=== PATIENT | female | born 1995 | race Two or more races ===

== ENCOUNTER 2022-05-05 10:39 | Outpatient (CLI) | payer BC | END 2022-05-05 10:40 | disposition home or self-care (01) | LOC: CSHULT 10:39 | PROVIDERS: ATTEND Nurse Practitioner Family | DX: E06.0 Acute thyroiditis (principal) | CPT/HCPCS: 76536 ==

== ENCOUNTER 2022-06-16 09:36 | Emergency (ER) | payer BC ==
[2022-06-16] MEDS ORDERED: Metoclopramide HCl 10 MG/2 ML VIAL ONE (10:24)
[2022-06-16] MEDS ORDERED: diphenhydrAMINE 50 MG/ML VIAL ONE (10:25)
[2022-06-16 10:31] LABS: #Monocytes 0.8 10x3/uL (0.0-1.1); #Neutrophils 6.2 10x3/uL (1.5-8.4); %Basophils 0.2 % (0.0-2.0); %Eosinophils 0.4 % (0.0-6.0); %Monocytes 9.7 % (0.0-10.0); %Neutrophils 73.5 % (40.0-75.0); Hemoglobin 12.4 g/dL (12.0-15.5); Mean Corpuscular HGB CONC 35.1 g/dL (32.0-36.0); Mean Corpuscular Hemoglobin 30.5 pg (27.0-33.0); Mean Corpuscular Volume 86.9 fl (81.6-98.3); Mean Platelet Volume 9.6 fl (7.4-10.4); Platelet Count 318 10x3/uL (150-450); RBC Distribution Width 12.3 % (11.5-14.5); Red Blood Cell (RBC) Count 4.06 10x6/uL (3.90-5.03); White Blood Cell (WBC) Count 8.4 10x3/uL (3.5-10.5)
[2022-06-16 12:20] LABS: Anion Gap 14 mmol/L (10-20); BUN (Urea Nitrogen) 10 mg/dL (7.0-18.7); Calc. Creatinine Clearance 0 mL/min (70-130); Calcium 9.5 mg/dL (7.8-10.44); Carbon Dioxide 21 mmol/L (22-29); Chloride 106 mmol/L (98-107); Estimated GFR 127; Glucose 64 mg/dL (70-105); Potassium 3.1 mmol/L (3.5-5.1); Sodium 138 mmol/L (136-145)
[2022-06-16] MEDS ORDERED: Potassium Chloride 20 MEQ TAB ONE (12:50)
== END 2022-06-16 12:57 | disposition home or self-care (01) ==
LOC: CSHERS 09:36
DX: O21.0 Mild hyperemesis gravidarum (principal); O99.810 Abnormal glucose complicating pregnancy; E16.2 Hypoglycemia, unspecified; O99.281 Endocrine, nutritional and metabolic diseases complicating pregnancy, first trimester; E87.6 Hypokalemia; Z3A.12 12 weeks gestation of pregnancy
CPT/HCPCS: 80048; 85025; 96365; 96375; J1200; J2765

== ENCOUNTER 2022-08-14 08:47 | Day surgery (SDC) | payer BC ==
[2022-08-14 09:36] VITALS: BMI 19.3
[2022-08-14] MEDS ORDERED: hydrALAZINE 20 MG/ML VIAL SLOW IVP PRN (11:50)
[2022-08-14 12:26] LABS: Bilirubin Neg (Negative); Blood, Urine Negative (Negative); Clarity Clear (Clear); Glucose, Urine (Dipstick) Normal (Negative); Ketone, Urine 50 mg/dL (Negative); Leukocyte Negative (Negative); Nitrite Negative (Negative); Protein, Urine (Dipstick) Negative (Neg-Trace); Urobilinogen Normal mg/dL (Less than 2)
[2022-08-14] MEDS ORDERED: Acetaminophen 500 MG TAB PO SCH (13:00)
== END 2022-08-14 14:32 | disposition home or self-care (01) ==
LOC: CSHLD/OP 08:47
PROVIDERS: ATTEND Student in an Organized Health Care Education/Training Program
DX: O26.892 Other specified pregnancy related conditions, second trimester (principal); M54.9 Dorsalgia, unspecified; Z3A.19 19 weeks gestation of pregnancy
CPT/HCPCS: 76815; 81003; 87480; 87510; 87660; 99285

== ENCOUNTER 2022-11-09 12:33 | Inpatient (IN) | payer BC ==
[2022-11-09 13:44] VITALS: BMI 23.8
[2022-11-09] MEDS ORDERED: Promethazine HCl 25 MG/ML VIAL IM PRN (14:04)
[2022-11-09] MEDS ORDERED: Butorphanol Tartrate 1 MG/ML VIAL SLOW IVP PRN (14:04)
[2022-11-09] MEDS ORDERED: Calcium Gluc 4.6 MEQ/10 ML (100 MG/ML) SLOW IVP PRN (14:04)
[2022-11-09] MEDS ORDERED: Lorazepam 2 MG/ML VIAL SLOW IVP PRN (14:04)
[2022-11-09] MEDS ORDERED: Ondansetron PF 4 MG/2 ML Vial IVP PRN (14:04)
[2022-11-09] MEDS ORDERED: hydrALAZINE 20 MG/ML VIAL SLOW IVP PRN (14:04)
[2022-11-09] MEDS ORDERED: Docusate 100 MG CAP PO PRN (14:04)
[2022-11-09] MEDS ORDERED: Zolpidem Tartrate 5 MG TAB PO PRN (14:04)
[2022-11-09] MEDS ORDERED: Magnesium Sulfate 20 gm/500 ml 20 GM/500 ML BAG ONE (14:20)
[2022-11-09] MEDS ORDERED: Betamet Acet/Betamet Na Ph 30 MG/5 ML VIAL ONE (14:21)
[2022-11-09] MEDS: Betamet Acet/Betamet Na Ph 30 MG/5 ML VIAL IM SCH (14:33)
[2022-11-09 15:12] LABS: Hemoglobin 12.6 g/dL (12.0-15.5); Mean Corpuscular HGB CONC 35.9 g/dL (32.0-36.0); Mean Corpuscular Hemoglobin 32.9 pg (27.0-33.0); Mean Corpuscular Volume 91.6 fl (81.6-98.3); Mean Platelet Volume 10.9 fl (7.4-10.4); Platelet Count 244 10x3/uL (150-450); RBC Distribution Width 14.3 % (11.5-14.5); Red Blood Cell (RBC) Count 3.83 10x6/uL (3.90-5.03); White Blood Cell (WBC) Count 7.5 10x3/uL (3.5-10.5)
[2022-11-09 15:45] LABS: HBSAg Index 0.17 S/CO (0-0.99); Hep B Surf Ag Non-Reactive S/CO (NonReactive)
[2022-11-09 15:46] LABS: Syphilis Antibody Nonreactive (Nonreactive); Syphilis Antibody Index 0.05 S/CO (<1.00 Non-Reactive)
[2022-11-09 15:55] LABS: SARS-CoV-2 NAA Rapid Test Not Detected (NotDetected)
[2022-11-09 21:02] LABS: Bilirubin Neg (Negative); Blood, Urine Negative (Negative); Clarity Clear (Clear); Glucose, Urine (Dipstick) Normal (Negative); Ketone, Urine Negative (Negative); Leukocyte Negative (Negative); Nitrite Negative (Negative); Protein, Urine (Dipstick) Negative (Neg-Trace); Specific Gravity, Urine 1.005 (1.005-1.030); Urobilinogen Normal mg/dL (Less than 2)
[2022-11-09 21:43] LABS: Fetal Membranes Rupture RUPTURE DETECTED (No Rupture)
[2022-11-09] MEDS ORDERED: Penicillin G Potassium 5 MILL.UNITS in Sodium Chloride 0.9% 100 ML IVPB SCH (23:00)
[2022-11-10] MEDS: Magnesium Sulfate 20 gm/500 ml 20 GM/500 ML BAG IVPB SCH ×2 (00:22→10:38)
[2022-11-10] MEDS ORDERED: Penicillin G 2.5 MILL.units 50 ML IVPB SCH (03:00)
[2022-11-10] MEDS ORDERED: Calcium Carbonate 500 MG ChewTAB PO PRN (06:15)
[2022-11-10] MEDS ORDERED: Azithromycin 250 MG TAB PO SCH ×2 (09:00→15:00)
[2022-11-10] MEDS: Ampicillin 2 GM in Sodium Chloride 0.9% 100 ML IVPB SCH ×3 (10:38→23:45)
[2022-11-10] MEDS ORDERED: AMPicillin 2 MG in Syringe 0 ML SLOW IVP SCH (12:00)
[2022-11-10] MEDS: Betamet Acet/Betamet Na Ph 30 MG/5 ML VIAL IM SCH (15:20)
[2022-11-10] MEDS ORDERED: Phenazopyridine HCl 95 MG TAB PO PRN (15:37)
[2022-11-10] MEDS ORDERED: Lidocaine 1% (PF) 30 ML VIAL ONE (15:53)
[2022-11-10] MEDS ORDERED: Butorphanol Tartrate 1 MG/ML VIAL ONE (15:53)
[2022-11-11] MEDS: Magnesium Sulfate 20 gm/500 ml 20 GM/500 ML BAG IVPB SCH (01:27)
[2022-11-11] MEDS: Ampicillin 2 GM in Sodium Chloride 0.9% 100 ML IVPB SCH ×2 (06:15→12:39)
[2022-11-11 09:29] LABS: Magnesium 5.4 mg/dL (1.6-2.6)
[2022-11-11 13:08] LABS: Group B Streptococcus by PCR Not Detected (NotDetected)
[2022-11-11 13:16] LABS: HIV (1/2) Antibody/Antigen Non-Reactive (NonReactive); HIV 1/2 INDEX 0.21 S/CO (<1.00)
[2022-11-11 13:34] LABS: Fetal Membranes Rupture No Membranes Rupture (No Rupture)
[2022-11-12] MEDS ORDERED: Bicitra 30 ML UDCUP PO PRN (08:17)
[2022-11-12] MEDS ORDERED: Famotidine/PF 20 mg/2ml Vial SLOW IVP PRN (08:17)
[2022-11-12] MEDS ORDERED: CEFAZOLIN 2 GM in Sodium Chloride 0.9% 100 ML IVPB SCH (08:30)
[2022-11-12] MEDS ORDERED: Azithromycin 500 MG in Sodium Chloride 0.9% 250 ML 250 ML IVPB SCH (08:30)
[2022-11-12] MEDS ORDERED: Morphine PF 10 MG/10 ML VIAL ONE (15:27)
[2022-11-12] MEDS ORDERED: Fentanyl 100 MCG/2 ML VIAL ONE ×3 (15:28→23:25)
[2022-11-12] MEDS ORDERED: Azithromycin 500 MG VIAL ONE (15:30)
[2022-11-12] MEDS ORDERED: CEFAZOLIN 2 GM VIAL ONE (15:30)
[2022-11-12] MEDS ORDERED: Phenylephrine 40 MG/NS 250 ML 250 ML ONE (16:58)
[2022-11-12] MEDS ORDERED: Oxytocin 10 UNITS/ML VIAL ONE ×2 (17:25→18:33)
[2022-11-12] MEDS ORDERED: Ondansetron PF 4 MG/2 ML Vial ONE (17:25)
[2022-11-12] MEDS ORDERED: Dexamethasone 4 mg/ml Vial ONE (17:25)
[2022-11-12] MEDS ORDERED: Methylergonovine 0.2 MG/ML VIAL ONE ×3 (17:40→22:41)
[2022-11-12] MEDS ORDERED: Tranexamic Acid 1,000 MG/10 ML VIAL ONE ×5 (18:01→22:41)
[2022-11-12] MEDS ORDERED: CEFAZOLIN 1 GM VIAL ONE (18:19)
[2022-11-12] MEDS ORDERED: Misoprostol 200 MCG TAB ONE ×3 (18:21→22:40)
[2022-11-12 18:46] LABS: Hemoglobin 5.4 g/dL (12.0-15.5); Mean Corpuscular HGB CONC 33.5 g/dL (32.0-36.0); Mean Corpuscular Hemoglobin 32.9 pg (27.0-33.0); Mean Corpuscular Volume 98.2 fl (81.6-98.3); Platelet Count 141 10x3/uL (150-450); RBC Distribution Width 14.6 % (11.5-14.5); Red Blood Cell (RBC) Count 1.64 10x6/uL (3.90-5.03); White Blood Cell (WBC) Count 9.6 10x3/uL (3.5-10.5)
[2022-11-12] MEDS ORDERED: diphenhydrAMINE 50 MG/ML VIAL IVP PRN (18:54)
[2022-11-12] MEDS ORDERED: Moisturizing Cream (Eucerin) 113 GM JAR TOP PRN (18:54)
[2022-11-12] MEDS ORDERED: Fentanyl 100 MCG/2 ML VIAL SLOW IVP PRN (18:54)
[2022-11-12] MEDS ORDERED: Meperidine HCl/PF 25 MG/ML VIAL SLOW IVP PRN (18:54)
[2022-11-12] MEDS ORDERED: Promethazine HCl 25 MG/ML VIAL IM PRN (18:54)
[2022-11-12] MEDS ORDERED: Promethazine HCl 25 MG SUPP PR PRN (18:54)
[2022-11-12] MEDS ORDERED: Naloxone HCl 0.4 mg/ml Vial IV PRN (18:54)
[2022-11-12] MEDS ORDERED: Ondansetron PF 4 MG/2 ML Vial IVP PRN (18:54)
[2022-11-12] MEDS ORDERED: Naloxone HCl 0.4 mg/ml Vial IVP PRN ×2 (18:54)
[2022-11-12] MEDS ORDERED: Ondansetron HCl/PF 4 MG/2 ML Vial IVP PRN (18:54)
[2022-11-12] MEDS ORDERED: Communication Order-Pharmacy FS SCH (19:00)
[2022-11-12 19:07] LABS: D-Dimer Test 8.47 mg/L FEU (0.19-0.50); INR-International Normal Ratio 1.1; PTT 36.7 sec (22.0-33.0); Prothrombin Time 11.4 sec (9.5-12.1)
[2022-11-12 21:26] LABS: Hemoglobin 7.6 g/dL (12.0-15.5); Mean Corpuscular HGB CONC 34.4 g/dL (32.0-36.0); Mean Corpuscular Hemoglobin 31.3 pg (27.0-33.0); Mean Corpuscular Volume 90.9 fl (81.6-98.3); Mean Platelet Volume 10.9 fl (7.4-10.4); Platelet Count 115 10x3/uL (150-450); RBC Distribution Width 16.2 % (11.5-14.5); Red Blood Cell (RBC) Count 2.43 10x6/uL (3.90-5.03); White Blood Cell (WBC) Count 14.9 10x3/uL (3.5-10.5)
[2022-11-12 21:48] LABS: ALT (SGPT) 33 U/L (8-55); AST (SGOT) 41 U/L (5-34); Albumin 1.8 g/dL (3.5-5.0); Alkaline Phosphatase 89 U/L (40-110); Anion Gap 9 mmol/L (10-20); BUN (Urea Nitrogen) 14 mg/dL (7.0-18.7); Bilirubin, Total 0.7 mg/dL (0.2-1.2); Calc. Creatinine Clearance 151 mL/min (70-130); Carbon Dioxide 18 mmol/L (22-29); Chloride 116 mmol/L (98-107); Estimated GFR 132; Globulin 1.6 g/dL (2.4-3.5); Glucose 93 mg/dL (70-105); Potassium 4.3 mmol/L (3.5-5.1); Protein, Total 3.4 g/dL (6.0-8.3); Sodium 139 mmol/L (136-145)
[2022-11-12 21:52] LABS: Calcium 6.5 mg/dL (7.8-10.44)
[2022-11-12] MEDS ORDERED: PROPOFOL 20 ML ONE (22:03)
[2022-11-12] MEDS ORDERED: NS w/ Oxytocin 30 units 500 ML ONE ×2 (22:17→22:40)
[2022-11-12] MEDS ORDERED: Carboprost 250 MCG/ML AMP ONE (22:41)
[2022-11-12] MEDS ORDERED: Lidocaine 2% PF 100 mg/5 ml Syringe ONE (22:41)
[2022-11-12] MEDS ORDERED: Rocuronium Bromide 10 MG/ML (10ML VIAL) ONE (22:41)
[2022-11-12] MEDS ORDERED: Succinylcholine 200 MG/10 ml SYRINGE FS ONE (22:41)
[2022-11-12] MEDS ORDERED: Midazolam HCl 2 mg/2 ml Vial ONE (22:46)
[2022-11-12] MEDS ORDERED: Phenylephrine 10 MG/ML VIAL ONE (23:37)
[2022-11-12] MEDS ORDERED: Norepinephrine 4 MG/4 ML VIAL ONE (23:38)
[2022-11-12] MEDS ORDERED: Calcium Chloride 1 GM/10 ML Abboject SYRINGE ONE (23:46)
[2022-11-13] MEDS ORDERED: Fentanyl 100 MCG/2 ML VIAL SLOW IVP PRN (00:39)
[2022-11-13] MEDS ORDERED: Morphine 2 MG/ML VIAL SLOW IVP PRN (01:00)
[2022-11-13] MEDS ORDERED: DISCONTINUE PREVIOUS NARCOTIC PAIN MEDICATIONS AND BENZODIAZEPINES FS SCH (01:00)
[2022-11-13] MEDS ORDERED: Lorazepam 2 MG/ML VIAL SLOW IVP PRN (01:00)
[2022-11-13] MEDS ORDERED: Fentanyl BOLUS 250 ML IVPB PRN (01:00)
[2022-11-13] MEDS ORDERED: Propofol BOLUS 1,000 MG/100 ML VIAL IV PRN (01:00)
[2022-11-13] MEDS: FENTANYL 2,000MCG/100-0.9%NACL 100 ML IVPB SCH ×2 (01:18→17:35)
[2022-11-13] MEDS: Lactated Ringer's 1,000 ML IV SCH ×6 (01:25→15:59)
[2022-11-13] MEDS: CEFAZOLIN 2 GM in Sodium Chloride 0.9% 100 ML IVPB SCH ×3 (01:39→15:59)
[2022-11-13 01:47] LABS: ALV-art Gradient 36.825 mmHg (0-20); Actual Bicarbonate (HCO3a) 18.2 mEq/L (22-28); Base Excess (BEa) -5.9 mEq/L (-2.0 to +3.0); CO2 Tension 31.1 mmHg (35.0-45.0); Calcium, Ionized (arterial) 1.15 mmol/L (1.12-1.30); Carboxyhemoglobin (COHb) 0.3 gm% (0.0-3.0); Critical Notified By: CP.PH; Hemoglobin (Hb) 10.8 g/dL (12.0-16.0); O2 Tension (PaO2), arterial 138.2 mmHg (80.0-100.0); Potassium - ABG Lab 4.5 mmol/L (3.70-5.30); Puncture Site RBA; RapidComm Collect By CP.PH; pH, Arterial 7.39 (7.35-7.45)
[2022-11-13 02:40] LABS: Platelet Count 141 10x3/uL (150-450)
[2022-11-13 02:41] LABS: #Monocytes 1.5 10x3/uL (0.0-1.1); #Neutrophils 10.7 10x3/uL (1.5-8.4); %Basophils 0.2 % (0.0-2.0); %Eosinophils 0.1 % (0.0-6.0); %Lymphocytes 22.5 % (18.0-47.0); %Monocytes 9.4 % (0.0-10.0); %Neutrophils 66.4 % (40.0-75.0); Hemoglobin 10.6 g/dL (12.0-15.5); Mean Corpuscular Volume 88.4 fl (81.6-98.3); Mean Platelet Volume 10.7 fl (7.4-10.4); Red Blood Cell (RBC) Count 3.53 10x6/uL (3.90-5.03); White Blood Cell (WBC) Count 16.1 10x3/uL (3.5-10.5)
[2022-11-13 03:23] LABS: Anion Gap 15 mmol/L (10-20); BUN (Urea Nitrogen) 15 mg/dL (7.0-18.7); Calc. Creatinine Clearance 113 mL/min (70-130); Calcium 8.1 mg/dL (7.8-10.44); Carbon Dioxide 17 mmol/L (22-29); Chloride 114 mmol/L (98-107); Estimated GFR 123; Glucose 109 mg/dL (70-105); Magnesium 1.7 mg/dL (1.6-2.6); Potassium 4.7 mmol/L (3.5-5.1); Sodium 141 mmol/L (136-145)
[2022-11-13 03:24] LABS: D-Dimer Test 3.16 mg/L FEU (0.19-0.50); INR-International Normal Ratio 1.1; PTT 31.9 sec (22.0-33.0); Prothrombin Time 11.9 sec (9.5-12.1)
[2022-11-13] MEDS ORDERED: Lactated Ringer's 1,000 ML IV SCH ×2 (04:00→23:30)
[2022-11-13 04:56] LABS: #Monocytes 2.4 10x3/uL (0.0-1.1); #Neutrophils 13.3 10x3/uL (1.5-8.4); %Monocytes 11.7 % (0.0-10.0); Hemoglobin 6.4 g/dL (12.0-15.5); Mean Corpuscular HGB CONC 34.8 g/dL (32.0-36.0); Mean Corpuscular Volume 86.4 fl (81.6-98.3); Mean Platelet Volume 11.6 fl (7.4-10.4); Platelet Count 110 10x3/uL (150-450); RBC Distribution Width 14.8 % (11.5-14.5); Red Blood Cell (RBC) Count 2.13 10x6/uL (3.90-5.03); White Blood Cell (WBC) Count 20.5 10x3/uL (3.5-10.5)
[2022-11-13] MEDS ORDERED: NOREPINEPHRINE 8 MG/250 ML-D5W 250 ML ONE (05:40)
[2022-11-13 06:58] LABS: Band 13 % (5-11); Lymphocytes 22 % (21-51); Monocytes 6 % (0-10); Nucleated RBC 1 % (0)
[2022-11-13 07:01] LABS: Neutrophil 59 % (42-75); Platelet Morphology Comment Appears Decreased; RBC Morphology Normal
[2022-11-13] MEDS ORDERED: EPINEPHrine 1 MG/ML AMP ONE (07:07)
[2022-11-13] MEDS ORDERED: Fentanyl 100 MCG/2 ML VIAL ONE (07:08)
[2022-11-13] MEDS ORDERED: PROPOFOL 20 ML ONE (07:08)
[2022-11-13] MEDS ORDERED: PHENYLEPHRINE-NS 100 MCG/ML 10 ML SYRINGE ONE (07:08)
[2022-11-13] MEDS ORDERED: Rocuronium Bromide 10 MG/ML (10ML VIAL) ONE (07:08)
[2022-11-13] MEDS ORDERED: Bupivacaine PF 0.5% 30 ML VIAL ONE (07:09)
[2022-11-13] MEDS ORDERED: ePHEDrine Sulfate 50 MG/10 ML VIAL ONE (07:09)
[2022-11-13] MEDS ORDERED: Albumin 5% 500 ML ONE (07:11)
[2022-11-13] MEDS ORDERED: Phenylephrine 10 MG/ML VIAL ONE (07:13)
[2022-11-13] MEDS ORDERED: EPINEPHrine 1 MG/10 ML Abboject SYRINGE ONE (07:25)
[2022-11-13] MEDS ORDERED: Midazolam HCl 2 mg/2 ml Vial ONE ×2 (07:28→08:55)
[2022-11-13 07:29] LABS: Hemoglobin 9.7 g/dL (12.0-15.5); Mean Corpuscular HGB CONC 34.9 g/dL (32.0-36.0); Mean Corpuscular Hemoglobin 29.9 pg (27.0-33.0); Mean Corpuscular Volume 85.8 fl (81.6-98.3); Mean Platelet Volume 11.4 fl (7.4-10.4); Platelet Count 73 10x3/uL (150-450); RBC Distribution Width 14.8 % (11.5-14.5); Red Blood Cell (RBC) Count 3.24 10x6/uL (3.90-5.03); White Blood Cell (WBC) Count 13.8 10x3/uL (3.5-10.5)
[2022-11-13 07:37] LABS: MDiff Complete? YES
[2022-11-13 07:47] LABS: Anion Gap 11 mmol/L (10-20); BUN (Urea Nitrogen) 17 mg/dL (7.0-18.7); Calc. Creatinine Clearance 107 mL/min (70-130); Calcium 6.3 mg/dL (7.8-10.44); Carbon Dioxide 16 mmol/L (22-29); Chloride 117 mmol/L (98-107); Estimated GFR 118; Glucose 82 mg/dL (70-105); Magnesium 1.4 mg/dL (1.6-2.6); Potassium 5.1 mmol/L (3.5-5.1); Sodium 139 mmol/L (136-145)
[2022-11-13] MEDS ORDERED: CEFAZOLIN 1 GM VIAL ONE (07:49)
[2022-11-13 08:03] LABS: D-Dimer Test 1.04 mg/L FEU (0.19-0.50); INR-International Normal Ratio 1.4; Prothrombin Time 14.6 sec (9.5-12.1)
[2022-11-13] MEDS ORDERED: metroNIDAZOLE 500 MG/100 ML BAG ONE (08:18)
[2022-11-13] MEDS ORDERED: NOREPINEPHRINE 8 MG/250 ML-D5W 250 ML IVPB SCH (08:30)
[2022-11-13 08:47] LABS: Band 11 % (5-11); Lymphocytes 13 % (21-51); Metamyelocyte 1 % (0-0); Nucleated RBC 2 % (0); Reactive Lymphocytes 3 % (0-10)
[2022-11-13 08:48] LABS: Monocytes 4 % (0-10); Neutrophil 68 % (42-75); Platelet Morphology Comment Appears Decreased
[2022-11-13 08:50] LABS: Polychromasia SLIGHT = 2-3 cells (100X) (0-2/hpf)
[2022-11-13] MEDS ORDERED: Famotidine/PF 20 mg/2ml Vial SLOW IVP SCH (09:00)
[2022-11-13] MEDS ORDERED: Vecuronium Bromide 50 MG in Sodium Chloride 0.9% 250 ML 250 ML IV SCH (09:15)
[2022-11-13 09:36] LABS: Hemoglobin 9.1 g/dL (12.0-15.5); Mean Corpuscular HGB CONC 33.7 g/dL (32.0-36.0); Mean Corpuscular Hemoglobin 29.7 pg (27.0-33.0); Mean Corpuscular Volume 88.2 fl (81.6-98.3); Mean Platelet Volume 11.2 fl (7.4-10.4); Platelet Count 172 10x3/uL (150-450); RBC Distribution Width 15.1 % (11.5-14.5); Red Blood Cell (RBC) Count 3.06 10x6/uL (3.90-5.03)
[2022-11-13 09:42] LABS: D-Dimer Test 1.08 mg/L FEU (0.19-0.50); INR-International Normal Ratio 1.2; PTT 39.4 sec (22.0-33.0); Prothrombin Time 12.5 sec (9.5-12.1)
[2022-11-13] MEDS: Pantoprazole 40 MG VIAL IVP SCH (09:58)
[2022-11-13 10:01] LABS: Anion Gap 16 mmol/L (10-20); BUN (Urea Nitrogen) 15 mg/dL (7.0-18.7); Calc. Creatinine Clearance 95 mL/min (70-130); Calcium 7.3 mg/dL (7.8-10.44); Carbon Dioxide 13 mmol/L (22-29); Chloride 114 mmol/L (98-107); Estimated GFR 103; Glucose 84 mg/dL (70-105); Potassium 5.8 mmol/L (3.5-5.1); Sodium 137 mmol/L (136-145)
[2022-11-13 10:08] LABS: ALV-art Gradient 35.175 mmHg (0-20); Actual Bicarbonate (HCO3a) 16.9 mEq/L (22-28); Base Excess (BEa) -7.1 mEq/L (-2.0 to +3.0); CO2 Tension 28.9 mmHg (35.0-45.0); Calcium, Ionized (arterial) 0.99 mmol/L (1.12-1.30); Carboxyhemoglobin (COHb) 0.2 gm% (0.0-3.0); Hemoglobin (Hb) 10.1 g/dL (12.0-16.0); O2 Tension (PaO2), arterial 142.6 mmHg (80.0-100.0); Potassium - ABG Lab 5.1 mmol/L (3.70-5.30); Puncture Site RRA; pH, Arterial 7.38 (7.35-7.45)
[2022-11-13 10:11] LABS: ALV-art Gradient 64.125 mmHg (0-20); Actual Bicarbonate (HCO3a) 17.8 mEq/L (22-28); Base Excess (BEa) -6.6 mEq/L (-2.0 to +3.0); CO2 Tension 31.1 mmHg (35.0-45.0); Carboxyhemoglobin (COHb) 0.3 gm% (0.0-3.0); Hemoglobin (Hb) 8.3 g/dL (12.0-16.0); O2 Tension (PaO2), arterial 110.9 mmHg (80.0-100.0); Potassium - ABG Lab 4.8 mmol/L (3.70-5.30); Puncture Site Arterial Line; pH, Arterial 7.38 (7.35-7.45)
[2022-11-13] MEDS: Ampicillin 2 GM in Sodium Chloride 0.9% 100 ML IVPB SCH ×2 (10:18→10:20)
[2022-11-13 10:24] LABS: Troponin I 1.213 ng/mL (< 0.028)
[2022-11-13 11:11] LABS: Hemoglobin 8.7 g/dL (12.0-15.5); Mean Corpuscular HGB CONC 34.5 g/dL (32.0-36.0); Mean Corpuscular Hemoglobin 29.5 pg (27.0-33.0); Mean Corpuscular Volume 85.4 fl (81.6-98.3); Mean Platelet Volume 11.1 fl (7.4-10.4); Platelet Count 135 10x3/uL (150-450); Red Blood Cell (RBC) Count 2.95 10x6/uL (3.90-5.03); White Blood Cell (WBC) Count 13.3 10x3/uL (3.5-10.5)
[2022-11-13 11:20] LABS: D-Dimer Test 0.88 mg/L FEU (0.19-0.50); INR-International Normal Ratio 1.2; PTT 46.7 sec (22.0-33.0); Prothrombin Time 12.7 sec (9.5-12.1)
[2022-11-13 11:25] LABS: Actual Bicarbonate (HCO3v) 17 mEq/L (22-28); Base Excess -8.6 mEq/L (-2.0 to +3.0); Calcium, Ionized (venous) 1.05 mmol/L (1.16-1.32); Chloride (VBG) 109 mmol/L (98-106); Hemoglobin (Hb) 9.4 g/dL (11.7-15.5); Potassium (VBG) 4.58 mmol/L (3.70-5.30); Puncture Site Other Site; Sodium 136.2 mmol/L (133-146); pH (venous) 7.29 (7.32-7.43)
[2022-11-13] MEDS ORDERED: Tranexamic Acid 1,000 MG in Sodium Chloride 0.9% 250 ML 250 ML IVPB SCH (11:30)
[2022-11-13] MEDS ORDERED: CALCIUM GLUC 1 GM/NS 50 ML 1 GM in Premix Bag 1 BAG IVPB SCH (11:30)
[2022-11-13] MEDS ORDERED: Magnesium 2 GM/50 ML(in water) 2 GM in Premix Bag 1 BAG IVPB SCH (12:30)
[2022-11-13 12:53] LABS: Magnesium 1.3 mg/dL (1.6-2.6)
[2022-11-13 13:18] LABS: Hemoglobin 8.8 g/dL (12.0-15.5); Platelet Count 147 10x3/uL (150-450)
[2022-11-13] MEDS: Acetaminophen 500 MG TAB PO PRN (16:31)
[2022-11-13 16:57] LABS: Hemoglobin 8.2 g/dL (12.0-15.5); Platelet Count 136 10x3/uL (150-450)
[2022-11-13] MEDS ORDERED: Lactated Ringer's 500 ML IV SCH (17:15)
[2022-11-13] MEDS: Propofol 1,000 MG/100 ML VIAL IV PRN (17:35)
[2022-11-13 21:28] LABS: Platelet Count 111 10x3/uL (150-450)
[2022-11-13 21:37] LABS: Anion Gap 12 mmol/L (10-20); BUN (Urea Nitrogen) 16 mg/dL (7.0-18.7); Calc. Creatinine Clearance 96 mL/min (70-130); Calcium 7.8 mg/dL (7.8-10.44); Carbon Dioxide 18 mmol/L (22-29); Chloride 113 mmol/L (98-107); Estimated GFR 104; Glucose 85 mg/dL (70-105); Potassium 4.1 mmol/L (3.5-5.1); Sodium 139 mmol/L (136-145)
[2022-11-13 23:25] LABS: D-Dimer Test 0.56 mg/L FEU (0.19-0.50); PTT 52.7 sec (22.0-33.0); Prothrombin Time 11.1 sec (9.5-12.1)
[2022-11-13] MEDS: metroNIDAZOLE 500 MG in Premix Bag 1 BAG IVPB SCH (23:47)
[2022-11-13] MEDS ORDERED: Piperacillin/Tazobactam 3.375 GM in Sodium Chloride 0.9% 100 ML IVPB SCH (23:59)
[2022-11-14 00:21] LABS: Hemoglobin 9.7 g/dL (12.0-15.5); Lactic Acid 1.2 mmol/L (0.5-2.2); Mean Corpuscular HGB CONC 35.4 g/dL (32.0-36.0); Mean Corpuscular Hemoglobin 30.1 pg (27.0-33.0); Mean Corpuscular Volume 85.1 fl (81.6-98.3); Mean Platelet Volume 10.9 fl (7.4-10.4); RBC Distribution Width 14.8 % (11.5-14.5); Red Blood Cell (RBC) Count 3.22 10x6/uL (3.90-5.03); White Blood Cell (WBC) Count 9.8 10x3/uL (3.5-10.5)
[2022-11-14 00:40] LABS: #Monocytes 0.3 10x3/uL (0.0-1.1); #Neutrophils 7.9 10x3/uL (1.5-8.4); %Basophils 0.1 % (0.0-2.0); %Lymphocytes 11.9 % (18.0-47.0); %Monocytes 3.6 % (0.0-10.0); %Neutrophils 82.9 % (40.0-75.0); Platelet Count 104 10x3/uL (150-450)
[2022-11-14 00:48] LABS: Platelet Morphology Comment Appears Decreased; Polychromasia SLIGHT = 2-3 cells (100X) (0-2/hpf)
[2022-11-14] MEDS ORDERED: Sodium Bicarb 50 MEQ/50 ML VIAL IVP SCH (01:00)
[2022-11-14] MEDS ORDERED: Magnesium 2 GM/50 ML(in water) 2 GM in Premix Bag 1 BAG IVPB SCH (01:00)
[2022-11-14] MEDS: Furosemide 40 MG/4 ML VIAL SLOW IVP SCH ×2 (01:02→12:21)
[2022-11-14 02:42] LABS: Actual Bicarbonate (HCO3a) 21.1 mEq/L (22-28); Base Excess (BEa) -2.6 mEq/L (-2.0 to +3.0); Calcium, Ionized (arterial) 1.13 mmol/L (1.12-1.30); Carboxyhemoglobin (COHb) 0.3 gm% (0.0-3.0); Critical Notified By: CP.PH; Hemoglobin (Hb) 12.1 g/dL (12.0-16.0); O2 Tension (PaO2), arterial 117.2 mmHg (80.0-100.0); Potassium - ABG Lab 3.9 mmol/L (3.70-5.30); Puncture Site RRA; RapidComm Collect By CP.PH; pH, Arterial 7.42 (7.35-7.45)
[2022-11-14 04:24] LABS: Hemoglobin 11.5 g/dL (12.0-15.5); Mean Corpuscular HGB CONC 36.4 g/dL (32.0-36.0); Mean Corpuscular Hemoglobin 30.3 pg (27.0-33.0); Mean Corpuscular Volume 83.4 fl (81.6-98.3); Mean Platelet Volume 11.3 fl (7.4-10.4); Platelet Count 133 10x3/uL (150-450); Red Blood Cell (RBC) Count 3.79 10x6/uL (3.90-5.03); White Blood Cell (WBC) Count 12.3 10x3/uL (3.5-10.5)
[2022-11-14 04:27] LABS: MDiff Complete? YES
[2022-11-14 04:48] LABS: ALT (SGPT) 26 U/L (8-55); AST (SGOT) 43 U/L (5-34); Albumin 3.8 g/dL (3.5-5.0); Alkaline Phosphatase 58 U/L (40-110); Anion Gap 15 mmol/L (10-20); BUN (Urea Nitrogen) 17 mg/dL (7.0-18.7); Bilirubin, Total 1.6 mg/dL (0.2-1.2); Calc. Creatinine Clearance 67 mL/min (70-130); Calcium 8.7 mg/dL (7.8-10.44); Carbon Dioxide 21 mmol/L (22-29); Chloride 106 mmol/L (98-107); Estimated GFR 67; Globulin 2.1 g/dL (2.4-3.5); Glucose 96 mg/dL (70-105); Magnesium 2.4 mg/dL (1.6-2.6); Potassium 3.7 mmol/L (3.5-5.1); Protein, Total 5.9 g/dL (6.0-8.3); Sodium 138 mmol/L (136-145)
[2022-11-14 05:07] LABS: Band 33 % (5-11); Lymphocytes 11 % (21-51); Monocytes 4 % (0-10); Neutrophil 52 % (42-75)
[2022-11-14 05:08] LABS: Anisocytosis SLIGHT = 6-15 cells (100X) (0-5/hpf); Macrocytosis SLIGHT = 6-15 cells (100X) (0-5/hpf); Polychromasia SLIGHT = 2-3 cells (100X) (0-2/hpf); Toxic Granulation SLIGHT
[2022-11-14 05:09] LABS: Platelet Morphology Comment Appears Adequate; Vacuoles SLIGHT
[2022-11-14 05:29] LABS: Band 19 % (5-11); Lymphocytes 17 % (21-51); Metamyelocyte 2 % (0-0); Monocytes 5 % (0-10)
[2022-11-14 05:30] LABS: Neutrophil 57 % (42-75)
[2022-11-14] MEDS: Lactated Ringer's 1,000 ML IV SCH ×2 (06:01→16:31)
[2022-11-14] MEDS: Propofol 1,000 MG/100 ML VIAL IV PRN (06:01)
[2022-11-14] MEDS: Piperacillin/Tazobactam 3.375 GM in Sodium Chloride 0.9% 100 ML IVPB SCH ×3 (06:03→21:23)
[2022-11-14] MEDS: metroNIDAZOLE 500 MG in Premix Bag 1 BAG IVPB SCH ×2 (07:48→16:31)
[2022-11-14] MEDS: Pantoprazole 40 MG VIAL IVP SCH (07:52)
[2022-11-14] MEDS ORDERED: Bupivacaine PF 0.5% 30 ML VIAL ONE (10:31)
[2022-11-14] MEDS ORDERED: EPINEPHrine 1 MG/ML AMP ONE (10:31)
[2022-11-14] MEDS ORDERED: Midazolam HCl 5 mg/5 ml Vial ONE (10:36)
[2022-11-14] MEDS ORDERED: Rocuronium Bromide 10 MG/ML (10ML VIAL) ONE (10:36)
[2022-11-14] MEDS ORDERED: Neomycin-Polymyxin 1 ML AMP ONE (11:18)
[2022-11-14] MEDS ORDERED: HYDROmorphone 10 mg/100 ml CADD IVPB PRN (17:12)
[2022-11-14] MEDS ORDERED: Promethazine HCl 25 MG/ML VIAL IM PRN (17:12)
[2022-11-14] MEDS ORDERED: Zolpidem Tartrate 5 MG TAB PO PRN (17:12)
[2022-11-14] MEDS ORDERED: diphenhydrAMINE 25 MG CAP PO PRN (17:12)
[2022-11-14] MEDS ORDERED: diphenhydrAMINE 50 MG/ML VIAL IM PRN (17:12)
[2022-11-14] MEDS ORDERED: diphenhydrAMINE 50 MG/ML VIAL IVP PRN (17:12)
[2022-11-14] MEDS ORDERED: Naloxone HCl 0.4 mg/ml Vial IV PRN (17:12)
[2022-11-14] MEDS ORDERED: Communication Order-Pharmacy FS SCH (17:15)
[2022-11-14] MEDS ORDERED: HYDROmorphone/PF 10 MG in Sodium Chloride 0.9% 49 ML IVPB PRN (17:45)
[2022-11-14 19:29] LABS: Hemoglobin 11.5 g/dL (12.0-15.5)
[2022-11-14 22:43] LABS: INR-International Normal Ratio 1.2; Prothrombin Time 15.8 sec (12.0-14.7)
[2022-11-14 22:44] LABS: PTT 44.1 sec (22.9-36.1)
[2022-11-15] MEDS: metroNIDAZOLE 500 MG in Premix Bag 1 BAG IVPB SCH ×3 (00:20→16:43)
[2022-11-15] MEDS: Furosemide 40 MG/4 ML VIAL SLOW IVP SCH (00:20)
[2022-11-15 01:04] LABS: Hemoglobin 9.8 g/dL (12.0-15.5)
[2022-11-15] MEDS: Piperacillin/Tazobactam 3.375 GM in Sodium Chloride 0.9% 100 ML IVPB SCH ×3 (03:42→20:20)
[2022-11-15 04:07] LABS: Hemoglobin 10.8 g/dL (12.0-15.5); Mean Corpuscular HGB CONC 35.6 g/dL (32.0-36.0); Mean Corpuscular Volume 84.2 fl (81.6-98.3); Mean Platelet Volume 10.4 fl (7.4-10.4); Platelet Count 195 10x3/uL (150-450); RBC Distribution Width 15.5 % (11.5-14.5); White Blood Cell (WBC) Count 18.7 10x3/uL (3.5-10.5)
[2022-11-15 04:23] LABS: ALT (SGPT) 12 U/L (8-55); AST (SGOT) 24 U/L (5-34); Alkaline Phosphatase 65 U/L (40-110); Anion Gap 16 mmol/L (10-20); BUN (Urea Nitrogen) 19 mg/dL (7.0-18.7); Bilirubin, Total 1.8 mg/dL (0.2-1.2); Calc. Creatinine Clearance 74 mL/min (70-130); Calcium 8.7 mg/dL (7.8-10.44); Carbon Dioxide 23 mmol/L (22-29); Chloride 102 mmol/L (98-107); Estimated GFR 76; Globulin 2.4 g/dL (2.4-3.5); Glucose 100 mg/dL (70-105); Potassium 3.2 mmol/L (3.5-5.1); Protein, Total 5.4 g/dL (6.0-8.3); Sodium 138 mmol/L (136-145)
[2022-11-15 05:10] LABS: MDiff Complete? YES
[2022-11-15 05:13] LABS: Band 18 % (5-11); Eosinophils 1 % (0-10); Lymphocytes 9 % (21-51); Monocytes 4 % (0-10); Neutrophil 68 % (42-75)
[2022-11-15 05:15] LABS: Macrocytosis SLIGHT = 6-15 cells (100X) (0-5/hpf); Platelet Morphology Comment Appears Adequate; Toxic Granulation SLIGHT
[2022-11-15 05:46] LABS: Magnesium 1.7 mg/dL (1.6-2.6)
[2022-11-15] MEDS: Lactated Ringer's 1,000 ML IV SCH ×2 (06:00→23:58)
[2022-11-15] MEDS: Potassium Chloride 20 MEQ in Premix Bag 1 BAG IVPB SCH ×2 (06:00→08:08)
[2022-11-15 07:55] LABS: Hemoglobin 9.7 g/dL (12.0-15.5)
[2022-11-15] MEDS ORDERED: Magnesium 2 GM/50 ML(in water) 2 GM in Premix Bag 1 BAG IVPB SCH ×3 (08:00→20:00)
[2022-11-15] MEDS: Pantoprazole 40 MG VIAL IVP SCH (08:08)
[2022-11-15] MEDS ORDERED: Bisacodyl 10 MG SUPP PR PRN (11:31)
[2022-11-15] MEDS ORDERED: Polyethylene Glycol 3350 17 GM Packet PO PRN (11:31)
[2022-11-15 12:03] LABS: Hemoglobin 9.7 g/dL (12.0-15.5)
[2022-11-15] MEDS: Ondansetron PF 4 MG/2 ML Vial IVP PRN ×2 (13:08→18:08)
[2022-11-15 17:38] LABS: Cardiolipin IgA Ab 5.3 APL-U/mL (<14 Negative); Cardiolipin IgG Ab 1.2 GPL-U/mL (<10 Negative); Cardiolipin IgM Ab 6.8 MPL-U/mL (<10 Negative); EliA APS New Method **** NEW METHOD ****
[2022-11-15 17:39] LABS: beta-2-Glycoprotein I IgA Ab 2.6 U/mL (<7 Negative); beta-2-Glycoprotein I IgM Abs Less than 2.9 U/mL (<7 Negative)
[2022-11-15] MEDS ORDERED: Electrolyte Replacement Protocol 1 EACH FS PRN (19:53)
[2022-11-15] MEDS ORDERED: Potassium Bicarbonate/Cit Ac 20 MEQ TAB PO SCH (20:00)
[2022-11-15] MEDS ORDERED: Communication Order-Pharmacy FS SCH (21:15)
[2022-11-16] MEDS: metroNIDAZOLE 500 MG in Premix Bag 1 BAG IVPB SCH ×3 (00:02→18:55)
[2022-11-16 00:38] LABS: Hemoglobin 8.9 g/dL (12.0-15.5); Platelet Count 210 10x3/uL (150-450)
[2022-11-16] MEDS: Ketorolac Tromethamine 30 MG/ML VIAL IVP PRN ×3 (03:09→20:12)
[2022-11-16] MEDS: Piperacillin/Tazobactam 3.375 GM in Sodium Chloride 0.9% 100 ML IVPB SCH ×3 (04:05→20:13)
[2022-11-16] MEDS: Simethicone Chewable 80 MG TAB PO SCH ×4 (04:06→22:22)
[2022-11-16 04:44] LABS: Hemoglobin 8.3 g/dL (12.0-15.5); Mean Corpuscular HGB CONC 34.7 g/dL (32.0-36.0); Mean Corpuscular Hemoglobin 30.2 pg (27.0-33.0); Mean Corpuscular Volume 86.9 fl (81.6-98.3); Platelet Count 207 10x3/uL (150-450); RBC Distribution Width 15.9 % (11.5-14.5); Red Blood Cell (RBC) Count 2.75 10x6/uL (3.90-5.03); White Blood Cell (WBC) Count 17.2 10x3/uL (3.5-10.5)
[2022-11-16 04:58] LABS: ALT (SGPT) 9 U/L (8-55); AST (SGOT) 19 U/L (5-34); Albumin 2.4 g/dL (3.5-5.0); Alkaline Phosphatase 61 U/L (40-110); Anion Gap 11 mmol/L (10-20); BUN (Urea Nitrogen) 16 mg/dL (7.0-18.7); Bilirubin, Total 1.4 mg/dL (0.2-1.2); Calc. Creatinine Clearance 122 mL/min (70-130); Carbon Dioxide 24 mmol/L (22-29); Chloride 105 mmol/L (98-107); Estimated GFR 125; Globulin 2.1 g/dL (2.4-3.5); Glucose 99 mg/dL (70-105); Magnesium 2.1 mg/dL (1.6-2.6); Potassium 3.9 mmol/L (3.5-5.1); Protein, Total 4.5 g/dL (6.0-8.3); Sodium 136 mmol/L (136-145)
[2022-11-16 05:03] LABS: MDiff Complete? YES; Platelet Morphology Comment Appears Adequate
[2022-11-16 05:13] LABS: Band 8 % (5-11); Lymphocytes 7 % (21-51); Monocytes 8 % (0-10); Neutrophil 77 % (42-75)
[2022-11-16] MEDS: Docusate Calcium (SURFAK) 240 MG CAP PO SCH ×3 (09:02→20:12)
[2022-11-16] MEDS: Pantoprazole 40 MG VIAL IVP SCH (09:03)
[2022-11-16] MEDS: Lactated Ringer's 1,000 ML IV SCH ×2 (11:47→22:23)
[2022-11-16 12:30] LABS: Hemoglobin 8.6 g/dL (12.0-15.5); Mean Corpuscular HGB CONC 34.7 g/dL (32.0-36.0); Mean Corpuscular Hemoglobin 30.2 pg (27.0-33.0); Mean Platelet Volume 9.9 fl (7.4-10.4); Platelet Count 207 10x3/uL (150-450); RBC Distribution Width 15.9 % (11.5-14.5); Red Blood Cell (RBC) Count 2.85 10x6/uL (3.90-5.03); White Blood Cell (WBC) Count 13.7 10x3/uL (3.5-10.5)
[2022-11-16 13:13] LABS: MDiff Complete? YES
[2022-11-16 13:16] LABS: Band 4 % (5-11); Lymphocytes 7 % (21-51); Monocytes 2 % (0-10); Neutrophil 86 % (42-75); Reactive Lymphocytes 1 % (0-10)
[2022-11-16 13:18] LABS: Platelet Morphology Comment Appears Adequate; RBC Morphology Normal
[2022-11-16 13:50] LABS: PT - Undiluted 15.8 sec (12.0-14.7); PTT - Undiluted 44.1 sec (22.9-36.1)
[2022-11-16 13:55] LABS: PTT 1:1 Mix 43.3 sec (22.9-36.1)
[2022-11-16 14:46] LABS: DRVVT Confirm 47.3; HEX PHOS LA Tube 1 62.7 SEC; HEX PHOS LA Tube 2 48.1 SEC; Hexagonal Phospholipid Neut 14.6 SEC (0-8.0)
[2022-11-16 14:47] LABS: Factor IX Test 136.7 % ACTIVE (56-149)
[2022-11-16 15:47] LABS: PT 1:1 37C-90 min. Incubation 14.5 sec (12.0-14.7); PTT 1:1 37C/90 MIN Incubation 39.5 sec (22.9-36.1)
[2022-11-17] MEDS: metroNIDAZOLE 500 MG in Premix Bag 1 BAG IVPB SCH ×2 (00:48→09:04)
[2022-11-17] MEDS: Ketorolac Tromethamine 30 MG/ML VIAL IVP PRN (04:37)
[2022-11-17] MEDS: Piperacillin/Tazobactam 3.375 GM in Sodium Chloride 0.9% 100 ML IVPB SCH (04:37)
[2022-11-17] MEDS: Simethicone Chewable 80 MG TAB PO SCH ×4 (04:37→20:00)
[2022-11-17 06:01] LABS: Hemoglobin 8.6 g/dL (12.0-15.5); Mean Corpuscular HGB CONC 34.4 g/dL (32.0-36.0); Mean Corpuscular Hemoglobin 30.1 pg (27.0-33.0); Mean Corpuscular Volume 87.4 fl (81.6-98.3); Platelet Count 264 10x3/uL (150-450); RBC Distribution Width 15.8 % (11.5-14.5); Red Blood Cell (RBC) Count 2.86 10x6/uL (3.90-5.03)
[2022-11-17 06:25] LABS: ALT (SGPT) 8 U/L (8-55); AST (SGOT) 26 U/L (5-34); Albumin 2.5 g/dL (3.5-5.0); Alkaline Phosphatase 89 U/L (40-110); Anion Gap 14 mmol/L (10-20); BUN (Urea Nitrogen) 17 mg/dL (7.0-18.7); Calc. Creatinine Clearance 93 mL/min (70-130); Calcium 8.2 mg/dL (7.8-10.44); Carbon Dioxide 20 mmol/L (22-29); Chloride 110 mmol/L (98-107); Estimated GFR 100; Globulin 2.3 g/dL (2.4-3.5); Glucose 93 mg/dL (70-105); Magnesium 1.6 mg/dL (1.6-2.6); Potassium 3.6 mmol/L (3.5-5.1); Protein, Total 4.8 g/dL (6.0-8.3); Sodium 140 mmol/L (136-145)
[2022-11-17 06:56] LABS: MDiff Complete? YES
[2022-11-17 07:02] LABS: Band 3 % (5-11); Eosinophils 2 % (0-10); Metamyelocyte 1 % (0-0); Monocytes 8 % (0-10); Reactive Lymphocytes 2 % (0-10)
[2022-11-17 07:03] LABS: Lymphocytes 12 % (21-51); Neutrophil 72 % (42-75)
[2022-11-17 07:04] LABS: Platelet Morphology Comment Appears Adequate
[2022-11-17 07:05] LABS: RBC Morphology Normal
[2022-11-17] MEDS ORDERED: Magnesium 2 GM/50 ML(in water) 2 GM in Premix Bag 1 BAG IVPB SCH (08:00)
[2022-11-17] MEDS: Ferrous Sulfate 325 MG TAB PO SCH ×2 (09:03→17:34)
[2022-11-17] MEDS: Pantoprazole 40 MG VIAL IVP SCH (09:04)
[2022-11-17] MEDS: Docusate Calcium (SURFAK) 240 MG CAP PO SCH ×2 (11:00→20:21)
[2022-11-17] MEDS: Ibuprofen 600 MG TAB PO PRN (19:58)
[2022-11-17] MEDS: HYDROcodone/Acetaminophen 5/325 mg Tablet PO PRN (19:59)
[2022-11-18] MEDS: Acetaminophen 500 MG TAB PO PRN ×2 (02:14→13:18)
[2022-11-18] MEDS: HYDROcodone/Acetaminophen 5/325 mg Tablet PO PRN ×5 (02:15→21:44)
[2022-11-18 05:08] LABS: Mean Corpuscular HGB CONC 34.2 g/dL (32.0-36.0); Mean Corpuscular Hemoglobin 30.2 pg (27.0-33.0); Mean Corpuscular Volume 88.3 fl (81.6-98.3); Mean Platelet Volume 9.8 fl (7.4-10.4); Platelet Count 318 10x3/uL (150-450); RBC Distribution Width 15.8 % (11.5-14.5); Red Blood Cell (RBC) Count 2.98 10x6/uL (3.90-5.03); White Blood Cell (WBC) Count 8.3 10x3/uL (3.5-10.5)
[2022-11-18 05:19] LABS: Anion Gap 13 mmol/L (10-20); BUN (Urea Nitrogen) 14 mg/dL (7.0-18.7); Calc. Creatinine Clearance 93 mL/min (70-130); Calcium 7.7 mg/dL (7.8-10.44); Carbon Dioxide 19 mmol/L (22-29); Chloride 111 mmol/L (98-107); Estimated GFR 100; Glucose 88 mg/dL (70-105); Potassium 3.3 mmol/L (3.5-5.1); Sodium 140 mmol/L (136-145)
[2022-11-18] MEDS: Simethicone Chewable 80 MG TAB PO SCH ×4 (06:13→21:44)
[2022-11-18 06:44] LABS: MDiff Complete? YES; Platelet Morphology Comment Appears Adequate
[2022-11-18 06:50] LABS: Band 5 % (5-11); Eosinophils 2 % (0-10); Lymphocytes 17 % (21-51); Metamyelocyte 1 % (0-0); Monocytes 11 % (0-10); Neutrophil 64 % (42-75)
[2022-11-18] MEDS: Ferrous Sulfate 325 MG TAB PO SCH ×2 (07:56→17:47)
[2022-11-18] MEDS: Docusate Calcium (SURFAK) 240 MG CAP PO SCH ×2 (07:57→21:44)
[2022-11-18] MEDS ORDERED: Potassium Chloride 20 MEQ TAB PO SCH (08:00)
[2022-11-18] MEDS: Ibuprofen 600 MG TAB PO PRN ×2 (08:09→17:51)
[2022-11-18] MEDS: Pantoprazole 40 MG VIAL IVP SCH (09:19)
[2022-11-18] MEDS: Cyclobenzaprine 10 MG TAB PO PRN (20:14)
[2022-11-19] MEDS: HYDROcodone/Acetaminophen 5/325 mg Tablet PO PRN ×5 (02:17→20:35)
[2022-11-19] MEDS: Simethicone Chewable 80 MG TAB PO SCH ×4 (05:24→21:28)
[2022-11-19] MEDS: Ibuprofen 600 MG TAB PO PRN ×3 (05:24→23:03)
[2022-11-19 05:28] LABS: Hemoglobin 9.7 g/dL (12.0-15.5); Mean Corpuscular HGB CONC 33.1 g/dL (32.0-36.0); Mean Corpuscular Hemoglobin 29.5 pg (27.0-33.0); Mean Corpuscular Volume 89.1 fl (81.6-98.3); Mean Platelet Volume 9.4 fl (7.4-10.4); Platelet Count 402 10x3/uL (150-450); RBC Distribution Width 15.8 % (11.5-14.5); Red Blood Cell (RBC) Count 3.29 10x6/uL (3.90-5.03); White Blood Cell (WBC) Count 11.2 10x3/uL (3.5-10.5)
[2022-11-19 05:34] LABS: MDiff Complete? YES
[2022-11-19 05:37] LABS: Anion Gap 12 mmol/L (10-20); BUN (Urea Nitrogen) 15 mg/dL (7.0-18.7); Calc. Creatinine Clearance 100 mL/min (70-130); Calcium 8.3 mg/dL (7.8-10.44); Carbon Dioxide 20 mmol/L (22-29); Chloride 110 mmol/L (98-107); Estimated GFR 109; Glucose 90 mg/dL (70-105); Potassium 3.9 mmol/L (3.5-5.1); Sodium 138 mmol/L (136-145)
[2022-11-19 06:41] LABS: Band 1 % (5-11); Lymphocytes 8 % (21-51); Monocytes 9 % (0-10); Neutrophil 82 % (42-75)
[2022-11-19 06:44] LABS: Anisocytosis SLIGHT = 6-15 cells (100X) (0-5/hpf); Hypochromia SLIGHT = 6-15 cells (100X) (0-5/hpf); Macrocytosis SLIGHT = 6-15 cells (100X) (0-5/hpf); Platelet Morphology Comment Appears Adequate; Polychromasia SLIGHT = 2-3 cells (100X) (0-2/hpf)
[2022-11-19] MEDS: Pantoprazole 40 MG VIAL IVP SCH (08:15)
[2022-11-19] MEDS: Ferrous Sulfate 325 MG TAB PO SCH ×2 (08:15→16:18)
[2022-11-19] MEDS: Docusate Calcium (SURFAK) 240 MG CAP PO SCH ×2 (08:15→21:28)
[2022-11-19] MEDS: Cyclobenzaprine 10 MG TAB PO PRN ×2 (09:52→21:28)
[2022-11-20] MEDS: HYDROcodone/Acetaminophen 5/325 mg Tablet PO PRN ×3 (00:45→10:29)
[2022-11-20 05:04] LABS: #Eosinphils 0.2 10x3/uL (0.0-0.5); #Monocytes 0.7 10x3/uL (0.0-1.1); #Neutrophils 7.3 10x3/uL (1.5-8.4); %Basophils 0.2 % (0.0-2.0); %Eosinophils 1.5 % (0.0-6.0); %Lymphocytes 11.9 % (18.0-47.0); %Monocytes 7.4 % (0.0-10.0); %Neutrophils 74.5 % (40.0-75.0); Hemoglobin 9.8 g/dL (12.0-15.5); Mean Corpuscular HGB CONC 33.2 g/dL (32.0-36.0); Mean Corpuscular Hemoglobin 29.6 pg (27.0-33.0); Mean Corpuscular Volume 89.1 fl (81.6-98.3); Platelet Count 439 10x3/uL (150-450); RBC Distribution Width 16.2 % (11.5-14.5); Red Blood Cell (RBC) Count 3.31 10x6/uL (3.90-5.03); White Blood Cell (WBC) Count 9.8 10x3/uL (3.5-10.5)
[2022-11-20 05:12] LABS: Anion Gap 13 mmol/L (10-20); BUN (Urea Nitrogen) 11 mg/dL (7.0-18.7); Calc. Creatinine Clearance 105 mL/min (70-130); Calcium 8.3 mg/dL (7.8-10.44); Carbon Dioxide 21 mmol/L (22-29); Chloride 107 mmol/L (98-107); Estimated GFR 116; Glucose 96 mg/dL (70-105); Sodium 137 mmol/L (136-145)
[2022-11-20] MEDS: Simethicone Chewable 80 MG TAB PO SCH ×2 (06:08→10:30)
[2022-11-20] MEDS: Docusate Calcium (SURFAK) 240 MG CAP PO SCH (08:00)
[2022-11-20] MEDS: Pantoprazole 40 MG VIAL IVP SCH (08:00)
[2022-11-20] MEDS: Ferrous Sulfate 325 MG TAB PO SCH (08:00)
[2022-11-20] MEDS ORDERED: Lactated Ringer's 500 ML IV SCH (08:15)
[2022-11-20] MEDS: Cyclobenzaprine 10 MG TAB PO PRN (12:28)
[2022-11-20 16:54] VITALS: BP 117/71; TEMP 98.8
== END 2022-11-20 17:20 | disposition home or self-care (01) | DRG 783 ==
LOC: CSHLD 12:33 → CSHICU 11-12 22:38 → CSHPP 11-16 21:29
PROVIDERS: ADMIT Student in an Organized Health Care Education/Training Program; ATTEND Internal Medicine
PROC: 10D00Z1 Extraction of Products of Conception, Low, Open Approach (ICD-10-PCS; principal; 2022-11-12)
PROC: 0UB70ZZ Excision of Bilateral Fallopian Tubes, Open Approach (ICD-10-PCS; 2022-11-12)
PROC: 0W3R7ZZ Control Bleeding in Genitourinary Tract, Via Natural or Artificial Opening (ICD-10-PCS; 2022-11-12)
PROC: 0UT90ZZ Resection of Uterus, Open Approach (ICD-10-PCS; 2022-11-12)
PROC: 2Y44X5Z Packing of Female Genital Tract using Packing Material (ICD-10-PCS; 2022-11-12)
PROC: 8E0W0CZ Robotic Assisted Procedure of Trunk Region, Open Approach (ICD-10-PCS; 2022-11-12)
PROC: 30233K1 Transfusion of Nonautologous Frozen Plasma into Peripheral Vein, Percutaneous Approach (ICD-10-PCS; 2022-11-12)
PROC: 30233N1 Transfusion of Nonautologous Red Blood Cells into Peripheral Vein, Percutaneous Approach (ICD-10-PCS; 2022-11-12)
PROC: 5A1945Z Respiratory Ventilation, 24-96 Consecutive Hours (ICD-10-PCS; 2022-11-12)
PROC: 0BH17EZ Insertion of Endotracheal Airway into Trachea, Via Natural or Artificial Opening (ICD-10-PCS; 2022-11-12)
PROC: 0W9G0ZZ Drainage of Peritoneal Cavity, Open Approach (ICD-10-PCS; 2022-11-13)
PROC: 02HV33Z Insertion of Infusion Device into Superior Vena Cava, Percutaneous Approach (ICD-10-PCS; 2022-11-13)
PROC: B548ZZA Ultrasonography of Superior Vena Cava, Guidance (ICD-10-PCS; 2022-11-13)
PROC: 3E0M05Z Introduction of Adhesion Barrier into Peritoneal Cavity, Open Approach (ICD-10-PCS; 2022-11-13)
PROC: 30233M1 Transfusion of Nonautologous Plasma Cryoprecipitate into Peripheral Vein, Percutaneous Approach (ICD-10-PCS; 2022-11-13)
PROC: 3E043XZ Introduction of Vasopressor into Central Vein, Percutaneous Approach (ICD-10-PCS; 2022-11-13)
PROC: 0DH67UZ Insertion of Feeding Device into Stomach, Via Natural or Artificial Opening (ICD-10-PCS; 2022-11-14)
PROC: 2Y54X5Z Removal of Female Genital Tract Packing Material (ICD-10-PCS; 2022-11-14)
DX: O60.14X0 Preterm labor third trimester with preterm delivery third trimester, not applicable or unspecified (principal); J96.00 Acute respiratory failure, unspecified whether with hypoxia or hypercapnia; O67.0 Intrapartum hemorrhage with coagulation defect; K66.1 Hemoperitoneum; R57.8 Other shock; O85 Puerperal sepsis; O41.03X0 Oligohydramnios, third trimester, not applicable or unspecified; O72.1 Other immediate postpartum hemorrhage; N17.9 Acute kidney failure, unspecified; K56.7 Ileus, unspecified; D62 Acute posthemorrhagic anemia; O26.873 Cervical shortening, third trimester; O99.43 Diseases of the circulatory system complicating the puerperium; O34.03 Maternal care for unspecified congenital malformation of uterus, third trimester; O99.893 Other specified diseases and conditions complicating puerperium; O99.53 Diseases of the respiratory system complicating the puerperium; O36.5930 Maternal care for other known or suspected poor fetal growth, third trimester, not applicable or unspecified; O43.213 Placenta accreta, third trimester; Z20.822 Contact with and (suspected) exposure to COVID-19; O42.013 Preterm premature rupture of membranes, onset of labor within 24 hours of rupture, third trimester; O99.285 Endocrine, nutritional and metabolic diseases complicating the puerperium; I95.9 Hypotension, unspecified; K59.00 Constipation, unspecified; O90.81 Anemia of the puerperium; O99.63 Diseases of the digestive system complicating the puerperium; R14.1 Gas pain; E87.5 Hyperkalemia; Z83.3 Family history of diabetes mellitus; Q51.3 Bicornate uterus; Z37.0 Single live birth; Z3A.32 32 weeks gestation of pregnancy; Z79.899 Other long term (current) drug therapy; Z79.82 Long term (current) use of aspirin; Q51.810 Arcuate uterus
CPT/HCPCS: 36415; 36430; 36600; 51702; 71045; 74018; 74177; 76705; 76815; 80048; 80053; 81003; 82330; 82375; 82805; 83605; 83735; 84112; 84484; 85025; 85027; 85049; 85240; 85245; 85246; 85250; 85300; 85362; 85379; 85384; 85598; 85610; 85611; 85613; 85730; 85732; 86146; 86147; 86780; 86850; 86900; 86901; 87040; 87086; 87340; 87389; 87653; 87811; 88307; 88341; 88342; 93005; 93010; 94002; 94003; 94150; 94760; C1765; C9113; J0171; J0290; J0456; J0595; J0610; J0690; J1100; J1170; J1885; J1940; J2001; J2060; J2210; J2250; J2270; J2274; J2370; J2405; J2540; J2543; J2550; J2590; J2704; J3010; J3475; J3480; J3490; J7050; J7120; P9012; P9016; P9035; P9045; P9048; P9059; S0020; U0002

== ENCOUNTER 2022-11-24 16:54 | Inpatient (IN) | payer BC ==
[~2022-11-24 16:54] MED LIST: Iopamidol 300 61% 100 ML VIAL FS ONE
[2022-11-24 17:51] LABS: #Eosinphils 0.2 10x3/uL (0.0-0.5); #Monocytes 0.4 10x3/uL (0.0-1.1); #Neutrophils 6.6 10x3/uL (1.5-8.4); %Basophils 0.5 % (0.0-2.0); %Eosinophils 1.8 % (0.0-6.0); %Lymphocytes 13.5 % (18.0-47.0); %Monocytes 5.1 % (0.0-10.0); %Neutrophils 77.6 % (40.0-75.0); Hemoglobin 9.6 g/dL (12.0-15.5); Mean Corpuscular HGB CONC 33.7 g/dL (32.0-36.0); Mean Corpuscular Hemoglobin 30.2 pg (27.0-33.0); Mean Corpuscular Volume 89.6 fl (81.6-98.3); Mean Platelet Volume 8.9 fl (7.4-10.4); Platelet Count 772 10x3/uL (150-450); RBC Distribution Width 15.9 % (11.5-14.5); Red Blood Cell (RBC) Count 3.18 10x6/uL (3.90-5.03); White Blood Cell (WBC) Count 8.4 10x3/uL (3.5-10.5)
[2022-11-24 18:02] LABS: ALT (SGPT) 17 U/L (8-55); Albumin 3.1 g/dL (3.5-5.0); Alkaline Phosphatase 91 U/L (40-110); Anion Gap 13 mmol/L (10-20); BUN (Urea Nitrogen) 13 mg/dL (7.0-18.7); Bilirubin, Total 0.4 mg/dL (0.2-1.2); Calc. Creatinine Clearance 0 mL/min (70-130); Calcium 8.8 mg/dL (7.8-10.44); Carbon Dioxide 24 mmol/L (22-29); Chloride 105 mmol/L (98-107); Estimated GFR 84; Globulin 3.9 g/dL (2.4-3.5); Glucose 81 mg/dL (70-105); Potassium 4.1 mmol/L (3.5-5.1); Sodium 138 mmol/L (136-145)
[2022-11-24 18:05] LABS: AST (SGOT) 29 U/L (5-34)
[2022-11-24 18:18] LABS: Anisocytosis SLIGHT = 6-15 cells (100X) (0-5/hpf); Platelet Morphology Comment Appears Increased; Polychromasia SLIGHT = 2-3 cells (100X) (0-2/hpf)
[2022-11-24 19:12] LABS: Bilirubin Neg (Negative); Blood, Urine 25 (Negative); Clarity Clear (Clear); Glucose, Urine (Dipstick) Normal (Negative); Ketone, Urine Negative (Negative); Leukocyte 100 (Negative); Nitrite Negative (Negative); Protein, Urine (Dipstick) Negative (Neg-Trace); Urobilinogen Normal mg/dL (Less than 2)
[2022-11-24 19:24] LABS: Bacteria/HPF Rare-Few HPF (None Seen)
[2022-11-24] MEDS ORDERED: HYDROcodone/Acetaminophen 5/325 mg Tablet ONE (19:50)
[2022-11-24] MEDS ORDERED: Ketorolac Tromethamine 30 MG/ML VIAL ONE (20:19)
[2022-11-24] MEDS ORDERED: Ondansetron PF 4 MG/2 ML Vial IVP PRN (20:50)
[2022-11-24] MEDS ORDERED: Senokot S 8.6-50 MG TAB PO PRN (20:50)
[2022-11-24] MEDS ORDERED: Morphine 4 MG/ML VIAL SLOW IVP PRN (20:54)
[2022-11-24] MEDS ORDERED: Iopamidol 30 ML ONE (22:40)
[2022-11-24] MEDS ORDERED: PROPOFOL 20 ML ONE (22:47)
[2022-11-24] MEDS ORDERED: Fentanyl 100 MCG/2 ML VIAL ONE (22:48)
[2022-11-24] MEDS ORDERED: PHENYLEPHRINE-NS 100 MCG/ML 10 ML SYRINGE ONE ×2 (22:57→23:36)
[2022-11-24] MEDS ORDERED: Verapamil 5 MG/2 ML VIAL ONE (23:01)
[2022-11-24] MEDS ORDERED: Ondansetron PF 4 MG/2 ML Vial ONE (23:01)
[2022-11-24] MEDS ORDERED: Lidocaine 1% PF 5 ML VIAL ONE (23:01)
[2022-11-24] MEDS ORDERED: Dexamethasone 4 mg/ml Vial ONE (23:01)
[2022-11-24] MEDS ORDERED: diphenhydrAMINE 50 MG/ML VIAL ONE (23:01)
[2022-11-24] MEDS ORDERED: Lidocaine 2% PF 100 mg/5 ml Syringe ONE (23:02)
[2022-11-24] MEDS ORDERED: Lidocaine 2% 6 ML SYR ONE (23:11)
[2022-11-24] MEDS ORDERED: CEFAZOLIN 1 GM VIAL ONE (23:12)
[2022-11-24] MEDS ORDERED: Midazolam HCl 2 mg/2 ml Vial ONE (23:14)
[2022-11-25] MEDS ORDERED: Iopamidol 0 ML ONE (00:01)
[2022-11-25 03:49] LABS: #Monocytes 0.2 10x3/uL (0.0-1.1); #Neutrophils 8.8 10x3/uL (1.5-8.4); %Basophils 0.3 % (0.0-2.0); %Eosinophils 0.1 % (0.0-6.0); %Lymphocytes 5.3 % (18.0-47.0); %Monocytes 1.8 % (0.0-10.0); %Neutrophils 91.1 % (40.0-75.0); Hemoglobin 9.7 g/dL (12.0-15.5); Mean Corpuscular HGB CONC 33.3 g/dL (32.0-36.0); Mean Corpuscular Hemoglobin 29.8 pg (27.0-33.0); Mean Corpuscular Volume 89.3 fl (81.6-98.3); Mean Platelet Volume 8.7 fl (7.4-10.4); Platelet Count 694 10x3/uL (150-450); RBC Distribution Width 15.9 % (11.5-14.5); Red Blood Cell (RBC) Count 3.26 10x6/uL (3.90-5.03); White Blood Cell (WBC) Count 9.6 10x3/uL (3.5-10.5)
[2022-11-25 03:59] LABS: ALT (SGPT) 15 U/L (8-55); AST (SGOT) 16 U/L (5-34); Albumin 3.2 g/dL (3.5-5.0); Alkaline Phosphatase 94 U/L (40-110); Anion Gap 14 mmol/L (10-20); BUN (Urea Nitrogen) 10 mg/dL (7.0-18.7); Bilirubin, Total 0.4 mg/dL (0.2-1.2); Calc. Creatinine Clearance 83 mL/min (70-130); Calcium 8.9 mg/dL (7.8-10.44); Carbon Dioxide 22 mmol/L (22-29); Chloride 107 mmol/L (98-107); Estimated GFR 97; Globulin 3.4 g/dL (2.4-3.5); Glucose 128 mg/dL (70-105); Potassium 4.5 mmol/L (3.5-5.1); Protein, Total 6.6 g/dL (6.0-8.3); Sodium 138 mmol/L (136-145)
[2022-11-25] MEDS: Famotidine/PF 20 mg/2ml Vial SLOW IVP SCH ×3 (07:18→21:13)
[2022-11-25] MEDS ORDERED: FLU VACC QS2022-23(6MOS UP)/PF 60 MCG/0.5 ML SYRINGE IM ONE (09:00)
[2022-11-25] MEDS ORDERED: Acetaminophen 325 MG TAB PO PRN (17:50)
[2022-11-25] MEDS ORDERED: HYDROcodone/Acetaminophen 5/325 mg Tablet PO PRN ×2 (17:50)
[2022-11-25] MEDS ORDERED: Bisacodyl 10 MG SUPP PR PRN (17:50)
[2022-11-25] MEDS ORDERED: diphenhydrAMINE 25 MG CAP PO PRN (17:50)
[2022-11-25] MEDS ORDERED: Simethicone Chewable 80 MG TAB PO PRN (17:50)
[2022-11-25] MEDS: Ibuprofen 800 MG TAB PO SCH (21:16)
[2022-11-26] MEDS: Ibuprofen 800 MG TAB PO SCH (05:22)
[2022-11-26 07:42] VITALS: BP 110/69; TEMP 97.9
[2022-11-26] MEDS ORDERED: Famotidine 20 MG TAB PO SCH (09:00)
== END 2022-11-26 11:18 | disposition home or self-care (01) | DRG 776 ==
LOC: CSHERS 16:54 → CSHPP 21:17
PROVIDERS: ADMIT Student in an Organized Health Care Education/Training Program; ATTEND Obstetrics & Gynecology
PROC: BT1F1ZZ Fluoroscopy of Left Kidney, Ureter and Bladder using Low Osmolar Contrast (ICD-10-PCS; 2022-11-24)
PROC: 0TJ98ZZ Inspection of Ureter, Via Natural or Artificial Opening Endoscopic (ICD-10-PCS; 2022-11-24)
PROC: 0T9030Z Drainage of Right Kidney with Drainage Device, Percutaneous Approach (ICD-10-PCS; principal; 2022-11-25)
DX: O90.89 Other complications of the puerperium, not elsewhere classified (principal); N13.1 Hydronephrosis with ureteral stricture, not elsewhere classified; Z20.822 Contact with and (suspected) exposure to COVID-19; Z90.710 Acquired absence of both cervix and uterus
CPT/HCPCS: 36415; 74176; 74177; 80053; 81003; 81015; 83605; 85025; 94760; 96374; C1769; J0690; J1100; J1200; J1885; J2001; J2250; J2405; J2704; J3010; Q9967; S0028

== ENCOUNTER 2023-04-12 22:41 | Emergency (ER) | payer BC, OTHER ==
[2023-04-12] MEDS ORDERED: Ketorolac Tromethamine 30 MG/ML VIAL ONE (23:40)
[2023-04-12 23:47] LABS: #Monocytes 0.4 10x3/uL (0.0-1.1); #Neutrophils 6.9 10x3/uL (1.5-8.4); %Basophils 0.1 % (0.0-2.0); %Eosinophils 0.5 % (0.0-6.0); %Lymphocytes 13.8 % (18.0-47.0); %Monocytes 4.4 % (0.0-10.0); %Neutrophils 80.7 % (40.0-75.0); Hemoglobin 10.8 g/dL (12.0-15.5); Mean Corpuscular HGB CONC 32.3 g/dL (32.0-36.0); Mean Corpuscular Hemoglobin 27.7 pg (27.0-33.0); Mean Corpuscular Volume 85.6 fl (81.6-98.3); Mean Platelet Volume 9.4 fl (7.4-10.4); Platelet Count 446 10x3/uL (150-450); RBC Distribution Width 15.5 % (11.5-14.5); White Blood Cell (WBC) Count 8.5 10x3/uL (3.5-10.5)
[2023-04-12 23:58] LABS: ALT (SGPT) 7 U/L (8-55); AST (SGOT) 14 U/L (5-34); Albumin 4.3 g/dL (3.5-5.0); Alkaline Phosphatase 78 U/L (40-110); Anion Gap 17 mmol/L (10-20); BUN (Urea Nitrogen) 9 mg/dL (7.0-18.7); Bilirubin, Total 0.9 mg/dL (0.2-1.2); Calc. Creatinine Clearance 0 mL/min (70-130); Calcium 9.5 mg/dL (7.8-10.44); Carbon Dioxide 21 mmol/L (22-29); Chloride 104 mmol/L (98-107); Estimated GFR 124; Globulin 3.8 g/dL (2.4-3.5); Glucose 116 mg/dL (70-105); Lipase 18 U/L (8-78); Potassium 3.9 mmol/L (3.5-5.1); Protein, Total 8.1 g/dL (6.0-8.3); Sodium 138 mmol/L (136-145)
[2023-04-13 01:22] LABS: Bilirubin Neg (Negative); Blood, Urine 250 (Negative); Glucose, Urine (Dipstick) Normal (Negative); Ketone, Urine Negative (Negative); Leukocyte 500 (Negative); Nitrite Positive (Negative); Protein, Urine (Dipstick) 30 mg/dl (Neg-Trace); Urobilinogen Normal mg/dL (Less than 2)
[2023-04-13 01:25] LABS: Pregnancy Test - Urine (BHCG) Negative (Negative)
[2023-04-13 01:26] LABS: Clarity Cloudy (Clear); Pregu Control Bar Appear? YES (CONTROL BAR)
[2023-04-13 01:27] LABS: Pregu Control Background? CLEAR/WHITE (CLR/WHITE)
[2023-04-13 01:32] LABS: Bacteria/HPF 4+ HPF (None Seen); Squamous Epithelial 0-3 HPF (0-3); WBC/HPF Greater than 50 HPF (0-3)
== END 2023-04-13 06:04 | disposition home or self-care (01) ==
LOC: CSHERS 22:41
DX: K59.00 Constipation, unspecified (principal); R14.0 Abdominal distension (gaseous)
CPT/HCPCS: 74176; 74177; 76856; 80053; 81003; 81015; 81025; 83605; 83690; 85025; 96374; J1885; Q9967